=== PATIENT | male | born 1930 | race Caucasian/White ===

== ENCOUNTER 2017-05-23 13:23 | Inpatient (IN) | payer MEDICARE ==
[~2017-05-23] VITALS: Ht 175.3 cm; Wt 70.3 kg
--- OUTSIDE RECORDS SUMMARY | 2017-05-23 13:25 | XMS REPORT | Clinical Summary ---
Author Author SNEHA [employer] [facility] Address Unknown Phone Unavailable Care Team Providers Care Dial Printer Name Role Phone PCP Unavailable Allergies Active Allergy Reactions Severity Noted Date Comments Levofloxacin 11/02/2016 hallucinations Current Medications Prescription Sig. Disp. Refills Start End Date Status Date ipratropium-albuterol Take 3 mLs by Active (DUO-NEB) 0.5 mg-3 mg(2.5 nebulization every 6 mg base)/3 mL nebulizer (six) hours as needed for solution Wheezing. theophylline (UTE-24) Take 400 mg by mouth Active 400 MG 24 hr capsule daily. finasteride (PROSCAR) 5 Take 5 mg by mouth daily. Active mg tablet spironolactone Take 25 mg by mouth Active (ALDACTONE) 25 MG tablet daily. latanoprost (XALATAN) 1 drop nightly. Active 0.005 % ophthalmic solution brimonidine (ALPHAGAN) 1 drop 2 (two) times Active 0.2 % ophthalmic solution daily. predniSONE (DELTASONE) 5 Take 5 mg by mouth daily. 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 Encounters Date Type Specialty Care Team Description 11/10/2016 [facility] Miladys Banda, SCC (squamous cell Encounter MD carcinoma), ear, left (Primary Dx) 11/10/2016 Procedure Pass 11/10/2016 Surgery Miladys Banda, BIOPSY/EXCISION,SOFT MD TISSUE HEAD/NECK 11/09/2016 Anesthesia Claire Browning MD Event 11/09/2016 Orders Only Basilio Romano MD SCC (squamous cell carcinoma), ear, left (Primary Dx) 11/02/2016 Hospital Pre-Admission Testing Miladys Banda, Encounter MD after 05/22/2016 Social History Tobacco Use Types Packs/Day Years Used Date Former Smoker 2.5 31 Quit: 1983 Alcohol Use Drinks/Week oz/Week Comments Yes 14 Shots of 8.4 liquor Sex Assigned at Date Recorded Not on file Last Filed Vital Signs Vital Sign Reading Time Taken Blood Pressure 148/68 11/10/2016 3:57 PM CDT Pulse 78 11/10/2016 3:57 PM CDT Temperature 36 C (96.8 F) 11/10/2016 3:57 PM CDT Respiratory Rate 20 11/10/2016 3:57 PM CDT Oxygen Saturation 91% 11/10/2016 3:57 PM CDT Inhaled Oxygen - - Concentration Weight 84.3 kg (185 lb 13.6 oz) 11/10/2016 6:35 AM CDT Height 175.3 cm (5' 9") 11/10/2016 6:35 AM CDT Body Mass Index 27.44 11/10/2016 6:35 AM CDT Plan of Treatment Not on file Procedures Procedure Name Priority Date/Time Associated Diagnosis Comments SKIN GRAFT,SPLIT 11/10/2016 Squamous cell carcinoma THICKNESS-HEAD/FACE 7:30 AM CDT of postauricular region BIOPSY/EXCISION,SOFT 11/10/2016 Squamous cell carcinoma TISSUE HEAD/NECK 7:30 AM CDT of postauricular region after 05/22/2016 Results * INTRAOPERATIVE PATH REPORT - SCAN (12/28/2016 11:01 AM) * RHYTHM STRIP - SCAN (11/11/2016 11:31 AM) * Tissue Exam (11/10/2016 8:27 AM) Component Value Ref Range Case Report Surgical Pathology Report Case: [id number] Authorizing Provider: Miladys Banda, Collected: 11/10/2016 0827 Ordering Location: [facility] Received: 11/10/2016 0847 SERVICES Pathologist: Stefany Lewis MD Specimen: Lesion, left postauricular cancer excluding deep margin ADDENDUM Diagram included on 11/15/2016. DIAGNOSIS SKIN AND SUBCUTANEOUS TISSUE, POSTAURICULAR, EXCISION: - INVASIVE SQUAMOUS CELL CARCINOMA, MODERATELY DIFFERENTIATED, KERATINIZING - SIZE OF TUMOR: 2.0 X 1.5 CM - DEPTH OF INVASION: 0.65CM ( MEASURED ON SLIDES) - LYMPH-VASCULAR INVASION: NOT IDENTIFIED - PERINEURAL INVASION: NOT IDENTIFIED - RESECTION MARGINS, ALL RADIAL AND DEEP/CARTILAGINOUS MARGINS: NEGATIVE FOR CARCINOMA SYNOPTIC REPORT SQUAMOUS CELL CARCINOMA OF THE SKIN: Biopsy, Excision, Re-excision, Lymphadenectomy (SCC - All Specimens) Specimen Site: Skin structure SPECIMEN Procedure: Excision, wide Primary Tumor Site: Skin Primary Tumor Site: External ear: left postauricular Primary Tumor Site Laterality: Left TUMOR Histologic Type: Squamous cell carcinoma (SCC) Histologic Grade: G2: Moderately differentiated EXTENT Tumor Size: Greatest dimension (cm): 2.0 cm Additional Dimension (cm): 1.5 cm Additional Dimension (cm): 0.65 cm Maximum Tumor Thickness: Thickness (mm): 6.5 mm Anatomic Level: V (carcinoma invades subcutaneum) MARGINS Peripheral Margins: Peripheral Margins: Uninvolved by invasive carcinoma Distance of Invasive Carcinoma from Closest Peripheral Margin: Specify (mm): 9 mm Specify Location(s), if possible: Specify margin(s): 12 o'clock and 3 o'clock Peripheral Margins: Uninvolved by carcinoma in situ Deep Margin: Uninvolved by invasive carcinoma Distance of Invasive Carcinoma from Margin: Specify (mm): 5 mm ACCESSORY FINDINGS Lymph-Vascular Invasion: Not identified Perineural Invasion: Not identified LYMPH NODES Status of Regional Lymph Nodes: No nodes submitted or found STAGE (pTNM) Primary Tumor (pT): pT2: Tumor greater than 2 cm in greatest dimension with or without one additional high risk feature, or any size with two or more high risk features Regional Lymph Nodes (pN): pNX: Regional lymph nodes cannot be assessed Distant Metastasis (pM): Not applicable Comment(s) Comment(s): High risk features: anatomic site ear, invasion depth, Payam level CPT Code(s) 27151, 29529 x 1; 60358 x 4 CLINICAL HISTORY Squamous cell carcinoma of postauricular region, left ear; note site of prior biopsy near deep cartilage, per Dr. Banda. SPECIMEN SOURCE Left postauricular cancer excluding deep margin GROSS DESCRIPTION The specimen is received fresh for frozen section diagnosis and labeled "left postauricular cancer excluding deep margin" and consists of a round excision of lopez-brown skin measuring 4.2 x 3.9 x 0.8 cm in depth. The skin surface has a soft fungating tumor on the surface measuring 2 x 1.5 x 0.6 cm, located 0.9 cm from 12:00 margin, 0.9 cm from 3:00 margin, 1.2 cm from 6:00 margin, 1.2 cm from the 9:00 margin and 0.5 cm from the deep/cartilaginous margin. There is attached cartilage which has been designated as the deep margin by the surgeon that measures 3 x 2.2 x 0.2 cm. There is a suture which is designated as 12:00. There is a defect in the deep cartilaginous region, in the region of prior surgery, per Dr. Banda. Ink code: 12:00 blue; 3:00 orange; 6:00 red; 9:00 green; deep black. Section code: A1FS, 9:00; A2FS, 3:00; A3FS, 12:00; A4FS, 6:00; A5FS, deep margin; A6 to A13, entire skin and tumor is submitted from right to left (A6 to A7 is one continuous section and A9 and A10, is one continuous section). CG/pl INTRAOPERATIVE SKIN AND SUBCUTANEOUS TISSUE, POSTAURICULAR, CONSULTATION EXCISION: - FSA1 TO FSA4: ALL MARGINS NEGATIVE FOR TUMOR - FSA5: INVASIVE SQUAMOUS CELL CARCINOMA, MODERATELY DIFFERENTIATED, KERATINIZING VERBALLY REPORTED TO DR. BANDA BY DR. LEWIS AT 9:32 A.M. MICROSCOPIC DESCRIPTION Note is made of this patient's history, per biopsy noted in H + P report, of invasive squamous cell carcinoma, present in subcutaneous tissue. Similar features are present herein, in the current sample. In one section (slide A9), there is an adjacent peripheral nerve, but definitive perineural tumor is not noted, nor is intravascular tumor. In these sections, tumor invades into subcutaneous tissue, but does not invade the deep cartilage. Specimen Performing Laboratory Tissue - Lesion [address] [address] * POC-Hemoglobin meter (11/10/2016 6:31 AM) Component Value Ref Range POC-Hemoglobin Meter 14.1Comment: TESTED AT [address] 13.0 - 16.8 g/[place] [address] Specimen Performing Laboratory Blood [address] [address] after 05/22/2016
--- OUTSIDE RECORDS SUMMARY | 2017-05-23 13:25 | XMS REPORT ---
Author Author [facility] Address Unknown Phone Unavailable Care Team Providers Care Rest Room Matron Name Role Phone JOSE MANUEL BANDA Unavailable Unavailable Problems This patient has no known problems. Allergies, Adverse Reactions, Alerts This patient has no known allergies or adverse reactions. Medications This patient has no known medications. Results Test Description Test Time Test Comments Text Results Atomic Results Result Comments TISSUE EXAM 2016-11-17 11:25:00 Surgical Pathology Report Case: [id number] Authorizing Provider: Jose Manuel Banda, Collected: 11/10/2016 0827 Ordering Location: [facility] Received: 11/10/2016 0847 SERVICES Pathologist: Stefany Lewis MD Specimen: Lesion, left postauricular cancer excluding deep margin Diagram included on 11/15/2016.Addendum electronically signed by Stefany Lewis MD on 11/17/2016 at 11:25 AMSKIN AND SUBCUTANEOUS TISSUE, POSTAURICULAR, EXCISION: - INVASIVE SQUAMOUS CELL CARCINOMA, MODERATELY DIFFERENTIATED, KERATINIZING - SIZE OF TUMOR: 2.0 X 1.5 CM - DEPTH OF INVASION : 0.65CM ( MEASURED ON SLIDES) - LYMPH-VASCULAR INVASION: NOT IDENTIFIED - PERINEURAL INVASION: NOT IDENTIFIED - RESECTION MARGINS, ALL RADIAL AND DEEP/ CARTILAGINOUS MARGINS: NEGATIVE FOR CARCINOMA SQUAMOUS CELL CARCINOMA OF THE SKIN: Biopsy, Excision, Re-excision, Lymphadenectomy (SCC - All Specimens) Specimen Site: Skin structureSPECIMEN Procedure: Excision, wide Primary Tumor Site: Skin Primary Tumor Site: External ear: left postauricular Primary Tumor Site Laterality: LeftTUMOR Histologic Type: Squamous cell carcinoma (SCC) Histologic Grade: G2: Moderately differentiatedEXTENT Tumor Size: Greatest dimension (cm): 2.0 cm Additional Dimension (cm): 1.5 cm Additional Dimension (cm): 0.65 cm Maximum Tumor Thickness: Thickness (mm): 6.5 mm Anatomic Level: V ( carcinoma invades subcutaneum)MARGINS Peripheral Margins: Peripheral Margins: Uninvolved by invasive carcinoma Distance of Invasive Carcinoma from Closest Peripheral Margin: Specify (mm): 9 mm Specify Location(s), if possible: Specify margin(s): 12 o'clock and 3 o'clock Peripheral Margins: Uninvolved by carcinoma in situ Deep Margin: Uninvolved by invasive carcinoma Distance of Invasive Carcinoma from Margin : Specify (mm): 5 mmACCESSORY FINDINGS Lymph-Vascular Invasion: Not identified Perineural Invasion: Not identifiedLYMPH NODES Status of Regional Lymph Nodes: No nodes submitted or foundSTAGE (pTNM) Primary Tumor (pT): pT2: Tumor greater than 2 cm in greatest dimension with or without one additional high risk feature, or any size with two or more high risk features Regional Lymph Nodes (pN): pNX: Regional lymph nodes cannot be assessed Distant Metastasis (pM): Not applicableComment(s) Comment(s): High risk features: anatomic site ear, invasion depth, Payam [id number], 49531 x 1; 52415 x 4Squamous cell carcinoma of postauricular region, left ear; note site of prior biopsy near deep cartilage, per Dr. Banda.Left postauricular cancer excluding deep marginThe specimen is received fresh for frozen section [...] the region of prior surgery, per Dr. Banda.Ink code : 12:00 blue; 3:00 orange; 6:00 red; 9:00 green; deep black.Section code: A1FS, 9:00; A2FS, 3:00; A3FS, 12:00; A4FS, 6:00; A5FS, deep margin; A6 to A13, entire skin and tumor is submitted from right to left (A6 to A7 is one continuous section and A9 and A10, is one continuous section). CG/pl SKIN AND SUBCUTANEOUS TISSUE, POSTAURICULAR, EXCISION: - FSA1 TO FSA4: ALL MARGINS NEGATIVE FOR TUMOR - FSA5: INVASIVE SQUAMOUS CELL CARCINOMA, MODERATELY DIFFERENTIATED, KERATINIZINGVERBALLY REPORTED TO DR. BANDA BY DR. LEWIS AT 9:32 A.M.Note is made of this patient's history, per [...] but does not invade the deep cartilage. POCT-HEMOGLOBIN METER 2016-11-10 06:33:00 POC-HEMOGLOBIN METER (JENNIFER) (test sqtf=1940) 14.1 g/dL 13.0-16.[address] [facility] [address] [facility] [address]
[2017-05-23] MEDS ORDERED: ALBUTEROL SULF 0.083% NEB SOLN 3 ML NEB NEB STA (14:11)
[2017-05-23] MEDS ORDERED: AZITHROMYCIN 500MG/NS 250 ML 250 ML IV STA (14:11)
[2017-05-23] MEDS ORDERED: IPRATROPIUM BROMIDE 0.02% 2.5 ML NEB NEB STA (14:11)
[2017-05-23] MEDS ORDERED: CEFTRIAXONE SOD 1 GM VIAL IV ONE (14:45)
--- NOTE | 2017-05-23 16:48 | Diagnostic Imaging Report ---
PROCEDURE: A single AP view of the chest. COMPARISON: None. INDICATIONS: SOB FINDINGS: Lines/tubes: None. Lungs: Bibasilar interstitial and air space opacities, left greater than right. Pleura: Blunting of left costophrenic angle. Heart and mediastinum: Normal heart size. Atherosclerosis of the thoracic aorta. Bones: No acute bony abnormality. Healed fracture deformities of the right posterior fifth and sixth ribs. IMPRESSION: Right basilar interstitial and air space opacities with blunting of the left costophrenic angle. Depending on the chronicity of patient's symptoms, the findings may be related to chronic pulmonary fibrosis or acute interstitial pneumonia with small pleural effusion. Dictated by: Tony Membreno M.D. on 05/23/2017 at 16:57 Electronically approved by: Tony Membreno M.D. on 05/23/2017 at 16:57
[2017-05-23 18:59] LABS: BASOPHILS % 0.4 % (0.0-1.0); EOSINOPHILS # (AUTO) 0.1 (0.0-0.4); EOSINOPHILS % 0.6 % (0.0-6.0); HEMATOCRIT 38.8 % (38.2-49.6); HEMOGLOBIN 12.4 g/dL (14.0-18.0); LYMPHOCYTES # (AUTO) 0.8 (1.0-3.2); LYMPHOCYTES % 7.9 % (18.0-39.1); MEAN CORPUSCULAR HEMOGLOBIN 32.8 pg (28-32); MEAN CORPUSCULAR VOLUME 102.6 fL (81-99); MONOCYTES # (AUTO) 0.5 (0.2-0.8); MONOCYTES % 5.2 % (4.4-11.3); NEUTROPHILS # (AUTO) 8.2 (2.1-6.9); NEUTROPHILS % 82.8 % (38.7-80.0); PLATELET COUNT 215 x10e3/uL (140-360); RED BLOOD COUNT 3.78 x10e6/uL (4.3-5.7); RED CELL DISTRIBUTION WIDTH 13.1 % (11.7-14.4)
[2017-05-23 19:07] LABS: INR 1.02; PROTHROMBIN TIME 13.9 seconds (11.9-14.5)
[2017-05-23 19:08] LABS: PARTIAL THROMBOPLASTIN TIME 22.5 seconds (23.8-35.5)
[2017-05-23 19:15] LABS: ALANINE AMINOTRANSFERASE 15 IU/L (0-55); ALBUMIN 2.8 g/dL (3.5-5.0); ALBUMIN/GLOBULIN RATIO 0.7 (0.8-2.0); ALKALINE PHOSPHATASE 64 IU/L (40-150); ANION GAP 15.3 mmol/L (8-16); BLOOD UREA NITROGEN 24 mg/dL (7-26); BUN/CREATININE RATIO 22 (6-25); CALCIUM 8.7 mg/dL (8.4-10.2); CARBON DIOXIDE 20 mmol/L (22-29); CHLORIDE 108 mmol/L (98-107); CREATINE KINASE 88 IU/L (30-200); CREATININE, SERUM 1.11 mg/dL (0.72-1.25); EST GLOMERULAR FILTRATION RATE > 60 ML/MIN (60-); GLUCOSE 82 mg/dL (74-118); MAGNESIUM 1.8 MG/DL (1.3-2.1); POTASSIUM 4.3 mmol/L (3.5-5.1); SODIUM 139 mmol/L (136-145)
[2017-05-23 19:22] LABS: B-TYPE NATRIURETIC PEPTIDE2 93.7 pg/mL (0-100)
[2017-05-23 19:23] LABS: BILIRUBIN,URINE NEGATIVE (NEGATIVE); CLARITY,URINE CLEAR (CLEAR); COLOR,URINE YELLOW (YELLOW); KETONES,URINE NEGATIVE (NEGATIVE); LEUKOCYTE ESTERASE ,URINE NEGATIVE (NEGATIVE); NITRITE,URINE NEGATIVE (NEGATIVE); PROTEIN,URINE DIPSTICK NEGATIVE (NEGATIVE); URINE UROBILINOGEN 0.2 mg/dL (0.2 - 1)
[2017-05-23] MEDS ORDERED: AZITHROMYCIN 500MG/NS 250 ML 250 ML ONE (19:27)
[2017-05-23] MEDS ORDERED: CEFTRIAXONE SOD 1 GM VIAL ONE (19:27)
[2017-05-23] MEDS ORDERED: AZITHROMYCIN 500MG/SOD CHL 0.9% 250ML BAG IV SCH (19:30)
[2017-05-23 19:37] LABS: BACTERIA,URINE RARE /HPF; RBC,URINE 0-5 /HPF (0-5); WBC,URINE (MAN) 0-5 /HPF (0-5)
[2017-05-23 19:38] LABS: MUCUS,URINE FEW (RARE)
[2017-05-23] MEDS ORDERED: AZITHROMYCIN 500MG/NS 250 ML 250 ML IV SCH (20:00)
--- OUTSIDE RECORDS SUMMARY | 2017-05-23 20:11 | XMS REPORT | Clinical Summary ---
Author Author [facility] [facility] Address Unknown Phone Unavailable Care Team Providers Care Sisal Picker Name Role Phone PCP Unavailable Allergies Active [...] Date Type Specialty Care Team Description 11/10/2016 [facility] Miladys Banda, SCC (squamous cell Encounter [...] Range Case Report Surgical Pathology Report Case: [id number] Authorizing Provider: Miladys Banda, Collected: 11/10/2016 0827 Ordering Location: [facility] Received: 11/10/2016 0847 SERVICES Pathologist: [...] ear, invasion depth, Payam level CPT Code(s) 63345, 89066 x 1; 53909 x 4 CLINICAL HISTORY Squamous cell carcinoma [...] cartilage. Specimen Performing Laboratory Tissue - Lesion [address] [address] * POC-Hemoglobin meter (11/10/2016 6:31 AM) Component Value Ref Range POC-Hemoglobin Meter 14.1Comment: TESTED AT [address] 13.0 - 16.8 g/[place] [address] Specimen Performing Laboratory Blood [address] [address] after 05/22/2016
[2017-05-23] MEDS ORDERED: CEFEPIME HCL 1 GM VIAL ONE (20:38)
[2017-05-23] MEDS: SODIUM CHLORIDE 0.9% 1000ML 1,000 ML IV SCH (20:45)
[2017-05-23] MEDS: CEFEPIME HCL 1 GM VIAL IV SCH (20:45)
[2017-05-23] MEDS: OSELTAMIVIR PHOSPHATE 75 MG CAP PO SCH (20:45)
[2017-05-23] MEDS: METHYLPREDNISOLONE SOD SUCC 40 MG/ML VIAL IV SCH (20:45)
[2017-05-23] MEDS: ALBUTEROL SULF 0.083% NEB SOLN 3 ML NEB NEB SCH (22:23)
[2017-05-24] VITALS (7 sets, daily range): BP systolic 120–143; BP diastolic 61–77
[2017-05-24] MEDS: ALBUTEROL SULF 0.083% NEB SOLN 3 ML NEB NEB SCH ×6 (00:10→19:50)
[2017-05-24] MEDS ORDERED: PREDNISONE5 MG PO (02:33)
[2017-05-24] MEDS: IPRATROPIUM BROMIDE 0.02% 2.5 ML NEB NEB SCH ×4 (03:39→19:50)
[2017-05-24] MEDS: SODIUM CHLORIDE 0.9% 1000ML 1,000 ML IV SCH ×2 (03:59→12:40)
[2017-05-24] MEDS ORDERED: SPIRONOLACTONE25 MG PO (06:16)
[2017-05-24] MEDS ORDERED: BRIMONIDINE TAR10 ML OP (06:16)
[2017-05-24] MEDS ORDERED: LATANOPROST2.5 ML OP (06:16)
[2017-05-24] MEDS ORDERED: FINASTERIDE5 MG PO (06:16)
[2017-05-24 06:51] LABS: BASOPHILS % 0.4 % (0.0-1.0); HEMATOCRIT 36.3 % (38.2-49.6); HEMOGLOBIN 11.6 g/dL (14.0-18.0); LYMPHOCYTES # (AUTO) 0.2 (1.0-3.2); LYMPHOCYTES % 4.4 % (18.0-39.1); MEAN CORPUSCULAR HEMOGLOBIN 32.5 pg (28-32); MEAN CORPUSCULAR VOLUME 101.7 fL (81-99); MONOCYTES # (AUTO) 0.1 (0.2-0.8); MONOCYTES % 1.3 % (4.4-11.3); NEUTROPHILS % 91.3 % (38.7-80.0); PLATELET COUNT 235 x10e3/uL (140-360); RED BLOOD COUNT 3.57 x10e6/uL (4.3-5.7)
[2017-05-24 07:11] LABS: ANION GAP 16.5 mmol/L (8-16); BLOOD UREA NITROGEN 29 mg/dL (7-26); BUN/CREATININE RATIO 26 (6-25); CALCIUM 8.3 mg/dL (8.4-10.2); CARBON DIOXIDE 20 mmol/L (22-29); CHLORIDE 108 mmol/L (98-107); CREATININE, SERUM 1.12 mg/dL (0.72-1.25); EST GLOMERULAR FILTRATION RATE > 60 ML/MIN (60-); GLUCOSE 120 mg/dL (74-118); POTASSIUM 4.5 mmol/L (3.5-5.1); SODIUM 140 mmol/L (136-145)
[2017-05-24 07:43] LABS: ANISOCYTOSIS SLIGHT; LYMPHOCYTES % (MANUAL) 4 % (19-48); METAMYELOCYTES % (MANUAL) 1 % (0-0); MONOCYTES % (MANUAL) 2 % (3.4-9.0); MYELOCYTES % (MANUAL) 1 % (0-0); NEUTROPHILS % (MANUAL) 92 % (40-74); PLATELET ESTIMATE ADEQUATE; PLATELET MORPHOLOGY COMMENT NORMAL; POIKILOCYTOSIS SLIGHT; RBC MORPHOLOGY COMMENT NORMAL
[2017-05-24] MEDS: METHYLPREDNISOLONE SOD SUCC 40 MG/ML VIAL IV SCH ×2 (08:27→20:34)
[2017-05-24] MEDS: OSELTAMIVIR PHOSPHATE 75 MG CAP PO SCH ×2 (08:27→20:34)
[2017-05-24] MEDS: CEFEPIME HCL 1 GM VIAL IV SCH ×2 (08:27→19:45)
[2017-05-24] MEDS: GUAIFENESIN 600MG/DEXTROMETHORPHAN 30MG TABSR PO SCH (18:15)
[2017-05-24] MEDS: FAMOTIDINE 20 MG TAB PO SCH (18:15)
[2017-05-24] MEDS: AZITHROMYCIN 500MG/NS 250 ML 250 ML IV SCH (18:25)
--- NOTE | 2017-05-24 19:18 | History and Physical ---
PRIMARY CARE PROVIDER: Dr. Waters at [facility]. CHIEF COMPLAINT: Shortness of breath. HISTORY OF PRESENT ILLNESS: Mr. Barragan is an 86-year-old gentleman with COPD who was diagnosed with bilateral bibasilar pneumonia by his PCP a few days ago and was started on p.o. Augmentin. The patient has gotten worse and presented with shortness of breath and was told by his PCP to go to the emergency room for evaluation. REVIEW OF SYSTEMS: He denies any subjective fever and chills or weight loss. He denies sinus congestion or sore throat. He denies chest pain or palpitations. He has shortness of breath, dyspnea with exertion. He has a hacking cough. He denies wheezing. He denies abdominal pain, nausea, vomiting or melena. Denies dysuria or flank pain. He denies rash or pruritus. He does have a laceration on his lateral right lower leg. He bumped up against something. He denies bleeding or bruising. Denies joint pain or swelling. Denies headache, vertigo or loss of consciousness. He denies depression, agitation, homicidal or suicidal ideation. PAST MEDICAL HISTORY: Significant for hypertension, COPD glaucoma. The patient has had surgery on his eyes as his only surgery. MEDICATIONS: Spironolactone 25 mg daily. Prednisone 5 mg daily. Two eye drops for glaucoma. Proscar 5 mg daily. ALLERGIES: HE HAS A STATED ALLERGY TO LEVOFLOXACIN. FAMILY HISTORY: Unremarkable. SOCIAL HISTORY: The patient is . [place] is his primary language. He quit smoking approximately 40 years ago. He does not drink or use illegal drugs. He is generally independently functioning. PHYSICAL EXAM: PSYCHIATRIC: He is alert and oriented times 3 with normal mood and affect. CONSTITUTIONAL: He has a normal body habitus. Is in no acute distress. VITAL SIGNS: Blood pressure 123/77. Pulse 81 and regular. Respiratory rate 18. O2 sat 100 percent on 2 liters nasal cannula. Temperature 97.2. HEENT: Head is atraumatic. Eyes are anicteric with clear conjunctivae. Ears and nares are without erythema or discharge. Oropharynx is clear. NECK: Is supple no mass or thyromegaly. LYMPHATIC SYSTEM: He has no palpable cervical, axillary or inguinal adenopathy. CARDIOVASCULAR: His heart has a regular rate and rhythm without murmur or extra heart sounds. He has no carotid bruit. Has no peripheral edema. He has weak dorsal pedal pulses. RESPIRATORY: Lungs reveal diminished breath sounds. He has some rhonchi in the bases. He has prolonged expiration, but no wheezing. Mostly generally diminished breath sounds. GASTROINTESTINAL: Abdomen is soft without organomegaly, masses or tenderness. Normal bowel sounds are present. CUTANEOUS: His skin is warm and dry to touch with no rash or skin breakdown except for a laceration on the right lateral lower leg, which has been seen by wound care and dressing has been applied. MUSCULOSKELETAL: His joints are in normal alignment without erythema or swelling. Has no calf tenderness. NEUROLOGIC: Exam is nonfocal with intact cranial nerves and no motor or sensory deficits. DIAGNOSTIC STUDIES: Chest x-ray shows bibasilar opacities, left greater than right with a small left effusion. His flu screen is negative. UA is negative. Lactic acid 9.6 which is normal. Troponin 0.024 which is negative. BNP 93.7,which is normal. Chemistry shows normal electrolytes. CO2 20. Creatinine 1.11. BUN 24. Glucose 82 and calcium 8.7. His transaminases, bilirubin and alkaline phos are normal. CBC shows a white count of 9.94 with 83% neutrophils, 8% lymphocytes, 5% monocytes. Hemoglobin 12.4, hematocrit 38.8 and platelet count of 215,000. His coags are normal. IMPRESSION AND PLAN 1. Bilateral bibasilar pneumonia that has failed outpatient treatment. The patient was started on IV cefepime and Zithromax along with nebulizer treatments and Mucinex. 2. Acute exacerbation of COPD. The patient has been started on Solu-Medrol, aggressive nebulizer treatments and Mucinex along with the IV antibiotics noted above. 3. Laceration to the right lateral lower leg. The wound care has been consulted for wound care. There was some purulence initially seen on the dressing. The patient is also receiving IV antibiotics for pneumonia, which should cover the wound infection as well. 4. Glaucoma. Will continue his eye drops. 5. For prophylaxis the patient will be using SCDs for DVT prophylaxis and Pepcid for GI prophylaxis. Job#: [id number]
[2017-05-24] MEDS: LATANOPROST(OPTH) 2.5 ML BTL OP SCH (20:34)
[2017-05-24] MEDS: BRIMONIDINE TARTRATE 0.15% OPTH DRPS 10ML BTL OP SCH (20:34)
[2017-05-25] VITALS (7 sets, daily range): BP systolic 115–149; BP diastolic 55–72
[2017-05-25] MEDS: IPRATROPIUM BROMIDE 0.02% 2.5 ML NEB NEB SCH ×4 (00:10→19:28)
[2017-05-25] MEDS: ALBUTEROL SULF 0.083% NEB SOLN 3 ML NEB NEB SCH ×5 (03:07→19:28)
[2017-05-25] MEDS: GUAIFENESIN 600MG/DEXTROMETHORPHAN 30MG TABSR PO SCH ×4 (06:00→17:08)
[2017-05-25 06:58] LABS: HEMATOCRIT 33.8 % (38.2-49.6); HEMOGLOBIN 10.9 g/dL (14.0-18.0); LYMPHOCYTES # (AUTO) 0.1 (1.0-3.2); LYMPHOCYTES % 2.5 % (18.0-39.1); MEAN CORPUSCULAR HEMOGLOBIN 32.9 pg (28-32); MEAN CORPUSCULAR HGB CONC 32.2 g/dL (31-35); MEAN CORPUSCULAR VOLUME 102.1 fL (81-99); MONOCYTES # (AUTO) 0.2 (0.2-0.8); MONOCYTES % 3.9 % (4.4-11.3); NEUTROPHILS # (AUTO) 5.2 (2.1-6.9); NEUTROPHILS % 92.7 % (38.7-80.0); PLATELET COUNT 219 x10e3/uL (140-360); RED BLOOD COUNT 3.31 x10e6/uL (4.3-5.7); RED CELL DISTRIBUTION WIDTH 12.7 % (11.7-14.4)
[2017-05-25 07:13] LABS: BLOOD UREA NITROGEN 29 mg/dL (7-26); BUN/CREATININE RATIO 28 (6-25); CALCIUM 8.2 mg/dL (8.4-10.2); CARBON DIOXIDE 19 mmol/L (22-29); CHLORIDE 111 mmol/L (98-107); CREATININE, SERUM 1.04 mg/dL (0.72-1.25); EST GLOMERULAR FILTRATION RATE > 60 ML/MIN (60-); GLUCOSE 155 mg/dL (74-118); MAGNESIUM 1.9 MG/DL (1.3-2.1); SODIUM 139 mmol/L (136-145)
[2017-05-25 07:34] LABS: THYROID STIMULATING HORMONE 0.324 uIU/mL (0.350-4.940)
--- NOTE | 2017-05-25 07:51 | Diagnostic Imaging Report ---
PROCEDURE: CHEST SINGLE (PORTABLE) COMPARISON: Patients [facility], DX, CHEST SINGLE (PORTABLE), 05/23/2017, 15:29. INDICATIONS: SHORTNESS OF BREATH. COUGH FINDINGS: LUNGS: Chronic appearing interstitial disease not significantly changed. PLEURA: No effusions or pneumothorax. HEART \T\ MEDIASTINUM: The heart is within normal size-limits. BONES \T\ SOFT TISSUES: No acute findings. Multiple old right rib fractures. CONCLUSION: No significant interval change. Collins Schultz D.O. Dictated by: Collins Schultz D.O. on 05/25/2017 at 8:01 Electronically approved by: Collins Schultz D.O. on 05/25/2017 at 8:01
[2017-05-25 08:09] LABS: LYMPHOCYTES % (MANUAL) 2 % (19-48); MONOCYTES % (MANUAL) 5 % (3.4-9.0); NEUTROPHILS % (MANUAL) 92 % (40-74)
[2017-05-25 08:10] LABS: ANISOCYTOSIS SLIGHT; HYPOCHROMASIA SLIGHT; PLATELET ESTIMATE ADEQUATE; PLATELET MORPHOLOGY COMMENT NORMAL; RBC MORPHOLOGY COMMENT NORMAL
[2017-05-25] MEDS ORDERED: PREDNISONE 5 MG TAB PO SCH (09:00)
[2017-05-25] MEDS: SILVER ANTIMICROBIAL WOUND GEL 45ML TOP SCH (09:11)
[2017-05-25] MEDS: CEFEPIME HCL 1 GM VIAL IV SCH ×2 (09:11→21:30)
[2017-05-25] MEDS: METHYLPREDNISOLONE SOD SUCC 40 MG/ML VIAL IV SCH (09:11)
[2017-05-25] MEDS: FAMOTIDINE 20 MG TAB PO SCH ×2 (09:11→17:07)
[2017-05-25] MEDS: FINASTERIDE 5 MG TAB PO SCH (09:11)
[2017-05-25] MEDS: SPIRONOLACTONE 25 MG TAB PO SCH (09:11)
[2017-05-25] MEDS: BRIMONIDINE TARTRATE 0.15% OPTH DRPS 10ML BTL OP SCH ×2 (09:11→16:50)
[2017-05-25] MEDS: OSELTAMIVIR PHOSPHATE 75 MG CAP PO SCH ×2 (09:11→21:30)
[2017-05-25] MEDS: AZITHROMYCIN 500MG/NS 250 ML 250 ML IV SCH (18:28)
[2017-05-25] MEDS: LATANOPROST(OPTH) 2.5 ML BTL OP SCH (21:30)
[2017-05-26] VITALS: BP 118/56
[2017-05-26] MEDS: IPRATROPIUM BROMIDE 0.02% 2.5 ML NEB NEB SCH ×3 (00:05→15:10)
[2017-05-26] MEDS: ALBUTEROL SULF 0.083% NEB SOLN 3 ML NEB NEB SCH ×4 (00:05→15:10)
[2017-05-26] MEDS: GUAIFENESIN 600MG/DEXTROMETHORPHAN 30MG TABSR PO SCH ×3 (01:00→12:24)
[2017-05-26 08:00] VITALS: BP 119/70
[2017-05-26] MEDS: CEFEPIME HCL 1 GM VIAL IV SCH (08:30)
[2017-05-26] MEDS: FAMOTIDINE 20 MG TAB PO SCH (08:30)
[2017-05-26] MEDS ORDERED: PREDNISONE 20 MG TAB PO SCH (09:00)
[2017-05-26] MEDS: BRIMONIDINE TARTRATE 0.15% OPTH DRPS 10ML BTL OP SCH (09:18)
[2017-05-26] MEDS: SPIRONOLACTONE 25 MG TAB PO SCH (09:18)
[2017-05-26] MEDS: FINASTERIDE 5 MG TAB PO SCH (09:18)
[2017-05-26] MEDS: OSELTAMIVIR PHOSPHATE 75 MG CAP PO SCH (09:18)
[2017-05-26] MEDS: SILVER ANTIMICROBIAL WOUND GEL 45ML TOP SCH (09:19)
[2017-05-26 12:00] VITALS: BP 115/65
[2017-05-26] MEDS ORDERED: PREDNISONE20 MG PO (14:42)
[2017-05-26] MEDS ORDERED: ALBUTEROL2.5 MG/3 M NEB (14:42)
[2017-05-26] MEDS ORDERED: IPRATROPIU0.2 MG/1 M NEB (14:42)
[2017-05-26] MEDS ORDERED: MUCINEX DM ER1 EACH PO (14:42)
[2017-05-26] MEDS ORDERED: CEFUROXIME250 MG PO (14:42)
[2017-05-26] MEDS ORDERED: SILVASORB480 ML TOP (14:42)
[2017-05-26] MEDS ORDERED: TAMIFLU75 MG PO (14:42)
[2017-05-26] MEDS ORDERED: AZITHROMYC100 MG/5 M PO (14:43)
--- NOTE | 2017-05-26 15:41 | Discharge Summary ---
DATE OF : 1930 PERTINENT HISTORY OF PRESENT ILLNESS: Mr. Barragan is an 86-year-old gentleman, whose primary care provider is Dr. Waters at [facility] with COPD, who is diagnosed with bilateral bibasilar pneumonia by his PCP a few days ago and was initially started on Augmentin and the patient failed outpatient treatment, progressively got worse, presented with shortness of breath and was told by his PCP to go the emergency room for evaluation. DIAGNOSTIC AND LABORATORY DATA: Diagnostic studies during admission showed a chest x-ray with bibasilar opacities, left greater than right with a small left effusion. Flu screen was negative. UA negative. Lactic acid 9.6, troponin 0.024, which is negative. Beta-natriuretic peptide 93.7, which is normal. CO2 of 20, creatinine 1.11, BUN 24, glucose 82, and calcium 8.7. CBC showed a white count of 9.94 with 83% neutrophils, 8% lymphocytes, 5% monocytes, hemoglobin 12.4, hematocrit 38.8, and platelet count of 315 and normal coags. ADMITTING DIAGNOSES: Included; 1. Bilateral bibasilar pneumonia that has failed outpatient treatment. 2. Acute exacerbation of chronic obstructive pulmonary disease. 3. Laceration to the right lateral lower leg. 4. Glaucoma. DISCHARGE DIAGNOSES 1. Bilateral bibasilar pneumonia that has failed outpatient treatment. 2. Acute exacerbation of chronic obstructive pulmonary disease. 3. Laceration to the right lateral lower leg. 4. Glaucoma. HOSPITAL COURSE: The patient has been treated with IV cefepime and Zithromax IV as well as DuoNebs and Mucinex. His IV Solu-Medrol has been weaned to p.o. prednisone. He has been on aggressive nebulizer treatments. Wound care has been provided to the laceration in the right lateral lower leg. He has received nutritional support and wound healing supplements. Eyedrops continued for his glaucoma and he has gradually progressed. He has oxygen at 2 liters via nasal cannula at home and he states he lives with his and a 17-year-old granddaughter. Orders were previously entered for case management consult for [facility] to eval and treat home safety evaluation and PT/OT to eval and treat. Physical therapy work with the patient today and stated that he did very well and that he should be fine to go home according to Desi, physical therapist. Laboratory data from 05/25/2017, sodium 129, potassium 4.0, chloride 111, CO2 of 19, BUN 29, creatinine 1.04, and glucose 155. WBC 5.64, hemoglobin 10.9, hematocrit 33.8, platelets 219, and neutrophils 92.7. PHYSICAL EXAMINATION VITAL SIGNS: Today, the day of discharge, temperature 98.8, pulse 86, blood pressure 118/56 with a MAP of 76, respirations 18, oxygen saturation 100% on 2 liters of oxygen via nasal cannula. Intake and output 2700 mL in and 550 mL out. GENERAL: In no acute distress, lying supine in bed. LUNGS: With diminished bases, prolonged expiration, otherwise clear. HEENT: Extraocular eye movements intact. Moist mucous membranes. NECK: Supple. No lymphadenopathy or thyromegaly. CARDIOVASCULAR: Regular rate and rhythm. No murmur. ABDOMEN: Bowel sounds positive x 4 quadrant. Soft, nontender, nondistended. EXTREMITIES: Without pitting edema. No sign or symptoms of DVT. He does have signs and symptoms of chronic venous insufficiency. NEUROLOGICAL: GCS 15, nonfocal. His most recent chest x-ray on 05/25/2017 showed chronic interstitial disease. DISCHARGE MEDICATIONS: I will discharge him today on oral antibiotics and p.o. prednisone tapering dose. DIET: Patient to continue on her cardiac diet. ACTIVITY: As tolerated. FOLLOWUP: Follow up with home health. CONSULTANTS: No consulting physicians. Dictated By: KETTY Garcia OTTO CLAYTON MD Job#: [id number] PAT
[2017-05-26 16:00] VITALS: BP 141/82
== END 2017-05-26 16:41 | disposition home health service (06) | DRG 190 ==
LOC: ER 13:23 → ERHOLD 20:09 → MED/SURG2 05-24 02:38
PROVIDERS: ADMIT Internal Medicine; ATTEND Internal Medicine
DX: J44.1 Chronic obstructive pulmonary disease with (acute) exacerbation (principal); J18.9 Pneumonia, unspecified organism; J84.9 Interstitial pulmonary disease, unspecified; S81.811A Laceration without foreign body, right lower leg, initial encounter; H40.9 Unspecified glaucoma; I10 Essential (primary) hypertension; W22.8XXA Striking against or struck by other objects, initial encounter
CPT/HCPCS: 36415; 71045; 80048; 80053; 81001; 82550; 82553; 83605; 83735; 83880; 84443; 84484; 85025; 85610; 85730; 87040; 87070; 87086; 87186; 87205; 87400; 93005; 94640; 99284; J0456; J0692; J0696; J2920; J7030; J7512